=== PATIENT | male | born 1950 | race Caucasian/White ===

== ENCOUNTER 2016-04-27 10:55 | Inpatient (IN) | payer OTHER, MEDICARE ==
[2016-04-27 11:15] VITALS: BMI 31.9
[2016-04-27] MEDS ORDERED: SODIUM CHLORIDE 500 ML IV STA (11:49)
--- NOTE | 2016-04-27 11:57 | PDOC ---
[id number]: SOB (PCP SENT) Time Seen by Provider: 04/27/16 11:20 History Source: Patient Exam Limitations: No Limitations - History of Present Illness Initial Comments: 04/27/16 11:55 66y M hx of multiple CVAs, HTN, HL, DM, presents with sob. Pt states that he has been feeling very dyspneic this morning when he woke up so he called his PMD who sent him to the ED for evaluation. The pt states he has been having increasing EVANS for the past month such as when ambulating and at PT. Pt also endorses increasing orthopnea the past few days, but denies any leg swelling, calf pain. The pt endorses intermittent cough but not worsened than his baseline. The pt does endorse occasional chest tightness, (non recently). No history of dvt/pe. Pt is on plavix. pt attributes his evans in the past to his labatelol and has been titrating down his dose with out his PMDs knowledge. NO new weakness, vision changes, numbness/tingling. 04/27/16 12:11 Past History - Past Medical History Allergies/Adverse Reactions: Allergies Allergy/AdvReac Type Severity Reaction Status Date / Time No Known Allergies Allergy Verified 04/27/16 11:06 Home Medications: Ambulatory Orders Amlodipine Besylate [Norvasc -] 10 mg PO DAILY 10/06/14 Acetaminophen [Tylenol .Regular Strength -] 650 mg PO Q6H PRN #0 tablet Atorvastatin Ca [Lipitor] 10 mg PO HS tablet 10/14/14 Clopidogrel Bisulfate [Plavix -] 75 mg PO DAILY tablet 10/14/14 Levetiracetam [Keppra -] 500 mg PO BID tablet 10/14/14 Losartan 50Mg/Hctz 12.5MG [Hyzaar -] 2 tab PO DAILY tablet 10/14/14 Metformin HCl [Glucophage -] 1,000 mg PO BID@0700,1630 tablet 10/14/14 Sodium Chloride Nasal [place] [[place] Nasal [place] -] 2 spray NS BID PRN #0 spraybtl 10/14/14 Sitagliptin Phosphate [Januvia -] 50 mg PO AM 04/27/16 Triamcinolone Acetonide [Nasacort] 2 spray NS HS 04/27/16 CVA: Yes (2014 & 2015) Diabetes: Yes HTN: Yes - Psycho/Social/Smoking Cessation Hx Anxiety: No Suicidal Ideation: No Smoking History: Never smoked Have you smoked in the past 12 months: Yes Number of Cigarettes Smoked Daily: 0 Cigars Per Day: 1 Information on smoking cessation initiated: No 'Breaking Loose' booklet given: 10/06/14 Hx Alcohol Use: Yes Drug/Substance Use Hx: No Hx Substance Use Treatment: No Review of Systems - Review of Systems Able to Perform ROS?: Yes Comments:: 04/27/16 12:03 Constitutional - no reported Fever, Chills, weakness, HEENT: no reported vision changes, sore throat Respiratory: +sob, evans, no reported cough, hemoptysis Cardiac: +intermittent chest tightness, no reported palpitations, light headedness, leg swelling Abd/GI: no reported abd pain, nausea, vomiting, blood per rectum, melena, diarrhea : no reported dysuria, frequency, discharge Musculskelatal - no reported back pain, joint swelling skin - no reported bruising, erythema, rash neurological: no reported headache, numbness, focal weakness, tingling, ataxia, weakness hematologic: no reported anemia, easy bruising, easy bleeding *Physical Exam - Vital Signs Last Vital Signs Temp Pulse Resp BP Pulse Ox 98.2 F 117 H 20 128/86 98 04/27/16 11:07 04/27/16 11:07 04/27/16 11:07 04/27/16 11:07 04/27/16 11:07 - Physical Exam Comments: 04/27/16 12:12 GENERAL: The patient is awake, alert, and fully oriented, Nontoxic - in no acute distress. HEAD: Normocephalic, atraumatic. EYES: extraocular movements intact, sclera anicteric, conjunctiva clear. ENT: Normal voice, Moist mucous membranes. NECK: Normal range of motion, supple LUNGS: Breath sounds equal, clear to auscultation bilaterally. No wheezes, no rhonchi, no rales. HEART: tachycardic ABDOMEN: Soft, nontender, normoactive bowel sounds. No guarding, no rebound. No CVA tenderness EXTREMITIES: Normal range of motion, +1 pitting edema. No clubbing or cyanosis. No cords, erythema, or tenderness. NEUROLOGICAL: No facial assymetry, Normal speech, strength symmetric in upper and lowe extremities PSYCH: Normal mood, normal affect. SKIN: Warm, Dry, normal turgor, Heart Score/ECG Review - ECG Impressions Comment:: 04/27/16 12:12 Twelve-lead EKG was performed and reviewed by me. There is normal sinus rhythm with a rate of 112 QTc interval of 480 Abnormal R wave progression There are no ST or T wave abnormalities. ED Treatment Course - LABORATORY CBC & Chemistry Diagram: 04/30/16 05:00 04/30/16 05:00 - RADIOLOGY Radiology Studies Ordered: Category Date Time Status CHEST X-RAY PORTABLE* [RAD] Stat Radiology 04/27/16 11:49 Ordered Medical Decision Making - Medical Decision Making 04/27/16 12:14 66-year-old gentleman history of TIAs, hypertension, high cholesterol, diabetes presenting for evaluation of increasing dyspnea exertion and shortness of breath that worsened significantly this morning with some orthopnea without any infectious complaints. The patient's vitals are noted for tachycardia with a heart rate of 120 which appears sinus on EKG, patient is not hypoxic and is no acute distress however, doesn't appear dyspneic on minimal movement. His lungs are clear, mild +1 pitting edema in lower extremities. Differential for the patient's symptoms includes possible congestive heart failure, PE, pneumonia, renal insufficiency, metabolic rate the derangement, anemia. Will check labs, vbg, EKG, chest x-ray Will give the patient 5 mL of fluid to see if there is improvement of his heart rate 04/27/16 14:08 The patient's labs were reviewed The patient is noted to have a troponin of 1.31 and a BNP [id number] The patient denies any current chest pain but did state that he had some chest discomfort 3-4 days ago. We'll give the patient aspirin. Will discuss with cardiology, anticipate anticoagulation with heparin awiting call back from Dr. Luther The pt does not recall his cardiologits name. anticipate admission 04/27/16 14:[address] luther agree with admission will give pt some lasix awaiting call back from dr. montesinos (cardiology) for heparinziation due to + troponin/NSTEMI Stable for admission to telemetry Case discussed in detail with admitting physician including history, physical exam and ancillary studies. Admitting physician has assumed care for the patient, will follow all pending diagnostics and will complete the evaluation and treatment. 04/27/16 14:[address] montesinos agree with manageent would recommend lovenox as cr is fine will put consult in the computer CRITICAL CARE DOCUMENTATION: I spent ~35 minutes of Critical Care time, excluding separately billable procedures, involving high complexity decision making to assess, manipulate and support vital system function(s) to treat single or multiple vital organ system failure and/or to prevent further life threatening deterioration of the patient' s condition. Pt doing wll, resting comfortably in the stretcher conversing with his in no distress *DC/Admit/Observation/Transfer Diagnosis at time of Disposition: NSTEMI (non-ST elevated myocardial infarction) Congestive heart failure Qualifiers: Congestive heart failure type: combined Congestive heart failure chronicity: unspecified congestive heart failure chronicity Qualified Code(s): I50.40 - Unspecified combined systolic (congestive) and diastolic (congestive) heart failure - Discharge Dispostion Condition at time of disposition: Guarded Admit: Yes - Referrals
[2016-04-27 12:08] LABS: BASOPHIL 0.6 % (0-2.0); EOSINOPHIL 1.2 % (0-4.5); MCH 28.1 pg (25.7-33.7); MCHC 32.9 g/dl (32.0-35.9); MEAN CELL VOLUME 85.4 fl (80-96); NEUTROPHILS 77.8 % (42.8-82.8); PLATELET COUNT 261 K/MM3 (134-434); RDW 13.7 % (11.9-15.9); WHITE BLOOD COUNT 10.4 K/mm3 (4.0-10.0)
[2016-04-27 12:27] LABS: INR 1.05 (0.82-1.09); PROTHROMBIN TIME (PATIENT) 11.6 SEC (9.98-11.88)
[2016-04-27 12:38] LABS: VENOUS PH 7.41 (7.31-7.41)
[2016-04-27 12:39] LABS: VENOUS BLOOD GAS HCO3 21.8 meq/L (22-29)
--- NOTE | 2016-04-27 13:10 | EKG ---
Test Reason : Blood Pressure : / mmHG Vent. Rate : 112 BPM Atrial Rate : 112 BPM P-R Int : 152 ms QRS Dur : 090 ms QT Int : 352 ms P-R-T Axes : 062 -13 092 degrees QTc Int : 480 ms POOR DATA QUALITY, INTERPRETATION MAY BE ADVERSELY AFFECTED SINUS TACHYCARDIA SEPTAL INFARCT , AGE UNDETERMINED NONSPECIFIC ST ABNORMALITY ABNORMAL ECG WHEN COMPARED WITH ECG OF 06-OCT-2014 05:11, SIGNIFICANT CHANGES HAVE OCCURRED Confirmed by BONITA MEADE MD ([id number]) on 04/27/2016 1:10:30 PM Referred By: Confirmed By:BONITA MEADE MD
[2016-04-27 13:35] LABS: ALBUMIN 3.4 g/dl (3.4-5.0); ANION GAP 12 (8-16); BILIRUBIN,TOTAL 0.6 mg/dL (0.2-1.0); CO2 21 mmol/L (21-32); CREATININE 1.1 mg/dL (0.7-1.3); GLUCOSE,RANDOM 188 mg/dL (74-106); SGPT/ALT 20 U/L (12-78); TOT PROT 6.5 g/dl (6.4-8.2)
[2016-04-27 13:49] LABS: ALK PHOS 64 U/L (45-117)
[2016-04-27 13:54] LABS: SGOT/AST 26 U/L (15-37); TROPONIN I 1.31 ng/ml (0.00-0.05)
[2016-04-27] MEDS ORDERED: ASPIRIN 81 MG CHEWABLE TABLETS PO ONE (14:08)
[2016-04-27] MEDS ORDERED: HEPARIN NA (PORCINE) 5,000 UNITS/ML 1ML VIAL IVPUSH ONE (14:19)
[2016-04-27] MEDS ORDERED: FUROSEMIDE 40 MG/4 ML INJECTABLE VIAL IVPUSH ONE (14:19)
[2016-04-27] MEDS ORDERED: HEPARIN INFUSION - 500 ML IVPB SCH (14:30)
[2016-04-27] MEDS ORDERED: ENOXAPARIN NA (PORCINE) 100 MG/1 ML DISP.SYRIN SQ ONE ×2 (14:32→14:58)
[2016-04-27] MEDS ORDERED: FUROSEMIDE 40 MG/4 ML INJECTABLE VIAL ONE (14:58)
[2016-04-27] MEDS ORDERED: ASPIRIN 81 MG CHEWABLE TABLETS ONE (14:58)
--- NOTE | 2016-04-27 15:16 | HP ---
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 Cardiovascular: Yes: HTN, Hyperlipdemia Endocrine: Yes: Diabetes Mellitus - Smoking History Smoking history: Never smoked Have you smoked in the past 12 months: Yes Aproximately how many cigarettes per day: 0 - Alcohol/Substance Use Hx Alcohol Use: Yes Number of Drinks Daily: 4 Home Medications - Allergies Allergies/Adverse Reactions: Allergies Allergy/AdvReac Type Severity Reaction Status Date / Time No Known Allergies Allergy Verified 04/27/16 11:06 - Home Medications Home Medications: Ambulatory Orders Amlodipine Besylate [Norvasc -] 10 mg PO DAILY 10/06/14 Acetaminophen [Tylenol .Regular Strength -] 650 mg PO Q6H PRN #0 tablet Atorvastatin Ca [Lipitor] 10 mg PO HS tablet 10/14/14 Clopidogrel Bisulfate [Plavix -] 75 mg PO DAILY tablet 10/14/14 Insulin (Levemir) [Levemir Flexpen -] 18 units SQ BIDAC pen 10/14/14 Levetiracetam [Keppra -] 500 mg PO BID tablet 10/14/14 Losartan 50Mg/Hctz 12.5MG [Hyzaar -] 2 tab PO DAILY tablet 10/14/14 Magnesium Oxide [Mag-Ox -] 400 mg PO BID tablet 10/14/14 Metformin HCl [Glucophage -] 1,000 mg PO BID@0700,1630 tablet 10/14/14 Metoprolol Succinate [Toprol XL -] 12.5 mg PO DAILY tab.sr.24h 10/14/14 Sitagliptin Phosphate [Januvia -] 50 mg PO BID@0700,1630 tablet 10/14/14 Sodium Chloride Nasal [place] [[place] Nasal [place] -] 2 spray NS BID PRN #0 spraybtl 10/14/14 Tamsulosin HCl [Flomax -] 0.4 mg PO DAILY@0830 cap.er.24h 10/14/14 Review of Systems - Review of Systems Constitutional: reports: Weakness Eyes: reports: No Symptoms HENT: reports: No Symptoms Neck: reports: No Symptoms Cardiovascular: reports: Chest Pain, Shortness of Breath Respiratory: reports: SOB, SOB on Exertion Gastrointestinal: reports: No Symptoms Genitourinary: reports: No Symptoms Musculoskeletal: reports: Muscle Weakness Integumentary: reports: No Symptoms Neurological: reports: Pre-Existing Deficit, Weakness Endocrine: reports: No Symptoms Hematology/Lymphatic: reports: No Symptoms Psychiatric: reports: No Symptoms Physical Examination Vital Signs: Vital Signs Temperature 98.1 F 04/27/16 15:09 Pulse Rate 103 H 04/27/16 15:09 Respiratory Rate 20 04/27/16 15:09 Blood Pressure 135/77 04/27/16 15:09 O2 Sat by Pulse Oximetry (%) 96 04/27/16 15:09 Constitutional: Yes: Mild Distress Eyes: Yes: WNL HENT: Yes: WNL Neck: Yes: WNL Cardiovascular: Yes: WNL Respiratory: Yes: Rales, SOB Gastrointestinal: Yes: WNL Musculoskeletal: Yes: Muscle Weakness Extremities: Yes: WNL Edema: Yes Peripheral Pulses WNL: Yes Integumentary: Yes: WNL Wound/Incision: Yes: Clean/Dry Neurological: Yes: Pre-Existing Deficit, Unsteady Gait ...Motor Strength: LLE, RLE Psychiatric: Yes: Other Imaging - Results Chest X-ray: Report Reviewed Problem List - Problems (1) Congestive heart failure Code(s): I50.9 - HEART FAILURE, UNSPECIFIED Qualifiers: Congestive heart failure type: combined Congestive heart failure chronicity: unspecified congestive heart failure chronicity Qualified Code(s ): I50.40 - Unspecified combined systolic (congestive) and diastolic (congestive ) heart failure (2) NSTEMI (non-ST elevated myocardial infarction) Code(s): I21.4 - NON-ST ELEVATION (NSTEMI) MYOCARDIAL INFARCTION (3) CVA (cerebral vascular accident) Code(s): I63.9 - CEREBRAL INFARCTION, UNSPECIFIED (4) Seizure Code(s): R56.9 - UNSPECIFIED CONVULSIONS Assessment/Plan ACUTE CHF TYPE NOT DETERMINED YET CHECK ECHO NUCLEAR STRESS DAILY WEIGHT LASIX IV 02 SUPPORT CARDIOLOGY EVAL TROPONIN ELEVATED HEPARIN IV MAY BE RISKY WITH HISTORY OF CVA DVT PROPHYLAXIS
[2016-04-27] MEDS ORDERED: ACETAMINOPHEN 325 MG TABLET (FP) PO PRN (15:21)
[2016-04-27] MEDS ORDERED: LOSARTAN 50MG/HCTZ 12.5MG 1 TAB (FP) PO SCH ×2 (15:30→18:00)
[2016-04-27] MEDS: INSULIN SLIDING SCALE (NOVOLOG) 1 VIAL SQ SCH ×2 (16:30→21:33)
[2016-04-27 17:32] LABS: TROPONIN I 1.33 ng/ml (0.00-0.05)
[2016-04-27] MEDS ORDERED: levETIRAcetam 500 MG TABLET (FP) PO SCH (22:00)
[2016-04-27] MEDS ORDERED: ATORVASTATIN CA 20 MG TABLET (FP) PO SCH (22:00)
[2016-04-27] MEDS ORDERED: METOPROLOL SUCCINATE 50 MG TAB.SR.24H (FP) ONE (23:14)
[2016-04-27] MEDS ORDERED: METOPROLOL SUCCINATE 50 MG TAB.SR.24H (FP) PO ONE (23:45)
[2016-04-28 00:02] LABS: CALCIUM 8.9 mg/dL (8.5-10.1); CREATININE 1.2 mg/dL (0.7-1.3)
[2016-04-28 00:04] LABS: MAGNESIUM 1.7 mg/dL (1.8-2.4)
[2016-04-28] MEDS ORDERED: LORAZEPAM CARPU-JECT 2 MG/ML DISP.SYRIN ONE (00:13)
[2016-04-28] MEDS ORDERED: METOPROLOL TARTRATE 5 MG/5 ML VIAL ONE (00:16)
--- NOTE | 2016-04-28 00:20 | PN ---
Progress Note (short form) - Note Progress Note: Called to intubate this 66 year old male who was admitted for AR and went into cardiac arrest. Prior to arrival, pt. was cardioverted and given magnesium sulfate for torsades. Pt. with agonal breathing, and so was intubated under direct laryngoscopy using #8.0 endotracheal tube. +ETCO2 noted, breath sounds equal bilaterally. Tube secured. Pt. to be transferred to ICU for further management.
[2016-04-28 00:25] LABS: TROPONIN I 1.2 ng/ml (0.00-0.05)
--- NOTE | 2016-04-28 00:44 | HOSP ---
Subjective - Review of Symptoms Events since last encounter: at 11: 54 rapid response was called by RN, patient was unresponsive, no spontaneous breathing, no pulse. Code 99 was called CPR started as per ACLS protocol, patient ventilated with ambubag. patient noticed to be in torasdes, 2gm mag given. patient was shocked patient revived, patient in afib and then went into sinus tech patient intubated by anesthesiologist, patient shifted to ICU WI -111 spo 99 on ventilator BP - 130/83 Patient cathetrized NG tube inserted patient sedated Plan cbc, cmp, lactic acid, cradiac profile, abg , cxr , monitor vitals monitor intake/ output family informed regarding condition of patient. Physical Examination Vital Signs: Vital Signs Temperature 97.8 F 04/27/16 19:35 Pulse Rate 102 H 04/28/16 00:32 Respiratory Rate 14 04/28/16 00:32 Blood Pressure 131/79 04/27/16 19:35 O2 Sat by Pulse Oximetry (%) 100 04/28/16 00:32 Labs: CBC, BMP 04/27/16 23:15 Visit type - Emergency Visit Emergency Visit: Yes ED Registration Date: 04/27/16 Care time: The patient presented to the Emergency Department on the above date and was hospitalized for further evaluation of their emergent condition. - New Patient This patient is new to me today: Yes Date on this admission: 04/28/16 - Critical Care Critical Care patient: Yes Total Critical Care Time (in minutes): 60 Critical Care Statement: The care of this patient involved high complexity decision making to prevent further life threatening deterioration of the patient 's condition and/or to evalute & treat vital organ system(s) failure or risk of failure.
--- NOTE | 2016-04-28 00:58 | CONSULT ---
Consult - text type - Consultation Consultation Note: PULM/CCM PT seen and examined in ICU CC: Post cardiac arrest HPI: Briefly Mr Hernandez is a 66 yo hx of multiple CVAs, HTN, HL, DM, presented to ED today with sob, worsening orthopnea. NOted on xray to have pulm edema. + troponin. Was admitted to tele floor for diuresis and serial troponin. Received lasix. Code 99 called at 1156 when pt was noted to be agonal breathing and without a pulse, pt was in torsades, D/c cardioversion at 2358, 2 Gm mag given 2359, ROSC 0002. Pt intubated by anesthesia and brought to ICU. In ICU pt was tachycardic 130, normotensive 130/70, and over breathing vent at rate 28. On exam pt was not awake, had no withdrawal to noxious stimuli. Pupils were reactive at 4mm. Therapeutic hypothermia was initiated. 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 Independent ADL. Social History Smoking history Never smoked Have you smoked in the past 12 Yes months Hx Alcohol Use Yes Number of Drinks Daily 4 Home Medications Medication Instructions Recorded Amlodipine Besylate [Norvasc -] 10 mg PO DAILY 10/06/14 Acetaminophen [Tylenol .Regular 650 mg PO Q6H PRN #0 tablet 10/14/14 Strength -] Atorvastatin Ca [Lipitor] 10 mg PO HS tablet 10/14/14 Clopidogrel Bisulfate [Plavix -] 75 mg PO DAILY tablet 10/14/14 Levetiracetam [Keppra -] 500 mg PO BID tablet 10/14/14 Losartan 50Mg/Hctz 12.5MG [Hyzaar 2 tab PO DAILY tablet 10/14/14 -] Metformin HCl [Glucophage -] 1,000 mg PO BID@0700,1630 tablet 10/14/14 Sodium Chloride Nasal [place] [[place] 2 spray NS BID PRN #0 spraybtl 10/14/14 [place] Nasal [place] -] Sitagliptin Phosphate [Januvia -] 50 mg PO AM 04/27/16 Triamcinolone Acetonide [Nasacort] 2 spray NS HS 04/27/16 Vital Signs Temp 97.8 F 04/27/16 19:35 Pulse 102 H 04/28/16 00:32 Resp 14 04/28/16 00:32 BP 131/79 04/27/16 19:35 Pulse Ox 100 04/28/16 00:32 Intake & Output 04/27/16 04/27/16 04/28/16 11:59 23:59 11:59 Intake Total 500 Balance 500 Weight 95.254 kg 92.079 kg Intake: IV 500 Other: Voiding Method Toilet Height 5 ft 8 in 5 ft 8 in Body Mass Index (BMI) 31.9 31.9 Weight Measurement Method Standing Scale Weight Measurement Method Est/Stated by Patient Current Medications Acetaminophen (Tylenol -) 650 mg PO Q6H PRN PRN Reason: FEVER OR PAIN Atorvastatin Calcium (Lipitor -) 20 mg PO HS [facility] Last Admin: 04/27/16 21:33 Dose: 20 mg Clopidogrel Bisulfate (Plavix -) 75 mg PO DAILY [facility] Enoxaparin Sodium (Lovenox -) 90 mg SQ Q12H [facility] Heparin Sodium/Dextrose (Heparin Infusion -) 500 mls @ 20 mls/hr IVPB TITR [facility]IL ; 1,000 UNITS/HR PRN Reason: Protocol Last Admin: 04/27/16 17:50 Dose: Not Given Insulin Aspart (Novolog Vial Sliding Scale -) 1 vial SQ ACHS [facility] PRN Reason: Protocol Last Admin: 04/27/16 21:33 Dose: 2 units Levetiracetam (Keppra -) 500 mg PO BID [facility] Last Admin: 04/27/16 21:34 Dose: 500 mg Review of TELE: Intermittent PVCs and short runs of VT. THen [place]. EKG: ST at 108, LAD, non specific ST changes, normal intervals CXR: ETT in good position approx 2-3 cm above eileen, bilteral pulm edema, small effusion PE: Gen- well nourished man, intubated HEENT: PERRL sluggish at 4mm, ETT secured, no LAD, no jvp PULM: coarse crackles bilaterally CV: RRR, no m/r/g appreciated ABD: soft, no masses EXT: trace edema NEURO: not awake, does not respond to voice or noxious simuli, +cough, + gag, dolls intact A/ 66 yo man with hx CVA, HL admitted with pulm edema, NSTEMI c/b cardiac arrest ( 6min to ROSC) likely due to hypomagnesium now undergoing therapeutic hypothermia P/ -mechanical ventilation for normal pH -therapeutic hypothermia protocol (33-36 for 24hrs and the slow rewarming) -propofol for sedation, fent pushes -anti shivering therapies (buspar, demerol, magnesium) -cont ASA, plavix -heparin gtt -diuresis -cards following appreciate recs -serial trop, T-BNP -keep K 4, Mag > 2 -consider neuro consult -GI prophylaxis Sb Bowen ACNP [id number] 35min CCT
[2016-04-28 01:05] LABS: ARTERIAL BLD GAS O2 SATURATION 94.3 % (90-98.9); ARTERIAL BLOOD GAS BASE EXCESS -2.4 meq/l (-2-2); ARTERIAL BLOOD GAS HCO3 21.9 meq/L (22-26); ARTERIAL BLOOD GAS pH 7.38 (7.35-7.45)
[2016-04-28 01:06] LABS: ART PUNCT SITE RIGHT BRACHIAL; LPM/O2% 100; PT. ON O2? YES; TYPE OF O2 VENT
[2016-04-28 01:07] LABS: MECH. VENT. YES; VENT RATE 12; VT/PRESS 500
[2016-04-28 01:11] LABS: INR 1.09 (0.82-1.09); MCH 28.2 pg (25.7-33.7); MEAN CELL VOLUME 85.3 fl (80-96); MEAN PLT VOLUME 10.9 fl (7.5-11.1); PLATELET COUNT 306 K/MM3 (134-434); RDW 13.7 % (11.9-15.9)
[2016-04-28 01:14] LABS: ACTIVATED PTT 30.9 SECONDS (26.9-34.4)
[2016-04-28 01:23] LABS: ALBUMIN 3.5 g/dl (3.4-5.0); BILIRUBIN,DIRECT 0.1 mg/dL (0.0-0.2); BILIRUBIN,TOTAL 0.5 mg/dL (0.2-1.0); CALCIUM 8.8 mg/dL (8.5-10.1); CREATININE 1.4 mg/dL (0.7-1.3); MAGNESIUM 2.4 mg/dL (1.8-2.4); PHOSPHOROUS 5.8 mg/dL (2.5-4.9); TOT PROT 6.1 g/dl (6.4-8.2)
[2016-04-28] MEDS ORDERED: MEPERIDINE HCL CARPU-JECT 50 MG/1 ML DISP.SYRIN IVPUSH PRN (01:28)
[2016-04-28] MEDS: PROPOFOL 100 ML IVPB SCH (01:30)
[2016-04-28 01:42] LABS: TROPONIN I 1.27 ng/ml (0.00-0.05)
[2016-04-28] MEDS ORDERED: HEPARIN NA (PORCINE) 5,000 UNITS/ML 1ML VIAL IVPUSH PRN ×2 (01:44)
[2016-04-28] MEDS ORDERED: FUROSEMIDE 40 MG/4 ML INJECTABLE VIAL IVPUSH ONE (01:52)
[2016-04-28] MEDS ORDERED: FUROSEMIDE 40 MG/4 ML INJECTABLE VIAL ONE (01:55)
[2016-04-28] MEDS: HEPARIN INFUSION - 500 ML IVPB SCH ×2 (02:00→20:55)
[2016-04-28] MEDS: busPIRone HCL 5 MG TABLET NGT SCH ×3 (02:00→17:13)
[2016-04-28] MEDS ORDERED: ENOXAPARIN NA (PORCINE) 100 MG/1 ML DISP.SYRIN SQ SCH ×2 (03:00)
[2016-04-28] MEDS: MAGNESIUM SULF 50% (8.12 MEQ/2 ML-1 GM VIAL) IVPB ONE ×2 (03:27→03:30)
[2016-04-28] MEDS ORDERED: KCL 10 MEQ IVPB 100 ML IVPB SCH (03:30)
[2016-04-28] MEDS ORDERED: PROPOFOL 100 ML ONE ×2 (06:44→15:14)
[2016-04-28] MEDS: INSULIN SLIDING SCALE (NOVOLOG) 1 VIAL SQ SCH ×4 (07:02→22:27)
[2016-04-28 08:13] LABS: CREATININE 1.3 mg/dL (0.7-1.3)
[2016-04-28 08:14] LABS: CALCIUM 8.7 mg/dL (8.5-10.1)
[2016-04-28 08:15] LABS: TROPONIN I 1.5 ng/ml (0.00-0.05)
--- NOTE | 2016-04-28 09:58 | PN ---
Progress Note, Physician Chief Complaint: EVENTS REVIEWED INTUBATED VTACH/CODE99 CALLED BEDSIDE - Current Medication List Current Medications: Active Medications Acetaminophen (Tylenol -) 650 mg PO Q6H PRN PRN Reason: FEVER OR PAIN Atorvastatin Calcium (Lipitor -) 20 mg PO HS [facility] Buspirone HCl (Buspar -) 5 mg NGT TID [facility] Stop: 04/28/16 14:01 Last Admin: 04/28/16 06:45 Dose: 5 mg Fentanyl (Sublimaze Injection -) 50 mcg IVPUSH Q1H PRN PRN Reason: AGITATION Stop: 04/29/16 01:59 Last Admin: 04/28/16 06:35 Dose: 50 mcg Heparin Sodium (Porcine) (Heparin -) 1,000 unit IVPUSH PRN PRN PRN Reason: Heparin Heparin Sodium (Porcine) (Heparin -) 5,000 unit IVPUSH PRN PRN PRN Reason: Heparin Heparin Sodium/Dextrose (Heparin Infusion -) 500 mls @ 20 mls/hr IVPB TITR [facility]IL ; 1,000 UNITS/HR PRN Reason: Protocol Last Admin: 04/28/16 02:00 Dose: 20 mls/hr Propofol (Diprivan -) 100 mls @ 11.049 mls/hr IVPB TITR [facility]IL; 20 MCG/KG/MIN PRN Reason: Protocol Last Titration: 04/28/16 04:00 Dose: 25 mcg/kg/min Insulin Aspart (Novolog Vial Sliding Scale -) 1 vial SQ ACHS [facility] PRN Reason: Protocol Last Admin: 04/28/16 07:02 Dose: 4 units Levetiracetam (Keppra -) 500 mg PO BID [facility] Meperidine HCl (Demerol Injection -) 50 mg IVPUSH Q6H PRN PRN Reason: SHIVERING - Objective Vital Signs: Vital Signs Temperature 92.6 F L 04/28/16 09:30 Pulse Rate 66 04/28/16 09:30 Respiratory Rate 14 04/28/16 09:30 Blood Pressure 96/66 04/28/16 09:30 O2 Sat by Pulse Oximetry (%) 100 04/28/16 09:00 Constitutional: Yes: Severe Distress Eyes: Yes: WNL HENT: Yes: WNL Neck: Yes: WNL Cardiovascular: Yes: Pulse Irregular Respiratory: Yes: Mechanically Ventilated Gastrointestinal: Yes: Other Genitourinary: Yes: [place] Present Musculoskeletal: Yes: Muscle Weakness Extremities: Yes: Other Edema: Yes Edema: LLE: Trace, RLE: Trace Peripheral Pulses WNL: Yes Integumentary: Yes: WNL Wound/Incision: Yes: Clean/Dry Neurological: Yes: Other (SEDATED) Labs: CBC, BMP 04/28/16 01:00 04/28/16 05:20 INR, PTT INR 1.09 (0.82-1.09) 04/28/16 01:00 Problem List - Problems (1) Congestive heart failure Code(s): I50.9 - HEART FAILURE, UNSPECIFIED Qualifiers: Congestive heart failure type: combined Congestive heart failure chronicity: unspecified congestive heart failure chronicity Qualified Code(s ): I50.40 - Unspecified combined systolic (congestive) and diastolic (congestive ) heart failure (2) NSTEMI (non-ST elevated myocardial infarction) Code(s): I21.4 - NON-ST ELEVATION (NSTEMI) MYOCARDIAL INFARCTION (3) CVA (cerebral vascular accident) Code(s): I63.9 - CEREBRAL INFARCTION, UNSPECIFIED (4) Seizure Code(s): R56.9 - UNSPECIFIED CONVULSIONS (5) Cardiac arrest due to underlying cardiac condition Code(s): I46.2 - CARDIAC ARREST DUE TO UNDERLYING CARDIAC CONDITION Assessment/Plan INTUBATED ICU CARE CARDIOLOGY EVAL PULMONARY CONSULT HEPARIN/LOVENOX FOR AC NEUROLOGY EVAL
[2016-04-28] MEDS ORDERED: FUROSEMIDE 40 MG/4 ML INJECTABLE VIAL IVPUSH SCH (10:00)
[2016-04-28] MEDS ORDERED: CLOPIDOGREL BISULFATE 75 MG TABLET (FP) PO SCH ×2 (10:00)
--- NOTE | 2016-04-28 10:37 | CONSULT ---
Consult Consult Specialty:: Cardiology Referred by:: Dr Rosenthal Reason for Consultation:: CHF, VT - History of Present Illness Chief Complaint: LIMON, CP History of Present Illness: 66 yo wit no sign tobacco hx, HTN, HLD, DM, CVAs (pontine ) -. in 09/28 and 11/30 , here with fatigue since 11/30, LIMON over the last 3 weeks and orthopnea the last 3 days. Patient had a normal echo at the time of his CVA in 09/28. He didn't see cardiology afterwards. Recently, he did , in Dr Rosenthal's office -. DANAE recommended, but not done yet. Patient complained of CP 3 days prior to coming in -. didn't want to come to hospital, but took ASA an dwent to sleep. Son also noted him rubbing his chest a couple of times I the ER yesterday, pt was in ST , in CHF and with trop 1.31 -. admitted to floor after receiving 40 mg IV lasix (reportedly 3 liters out -. not charted well in ER). On the floor, pt with lost of short NSVT -. given toprol XL 50 and stat mag sent. However, he coded -. rhythm was torsades -. code lasted about 6 minutes-. ICU, intubated -> In ICU pt was tachycardic 130, normotensive 130/70, and over breathing vent at rate 28. On exam pt was not awake, had no withdrawal to noxious stimuli. Pupils were reactive at 4mm. Therapeutic hypothermia was initiated. Mg came back at 1.7 -> repleted BP a bit low subsequently. 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 Home Medications - Allergies Allergies/Adverse Reactions: Allergies Allergy/AdvReac Type Severity Reaction Status Date / Time No Known Allergies Allergy Verified 04/27/16 11:06 - Home Medications Home Medications: Ambulatory Orders Amlodipine Besylate [Norvasc -] 10 mg PO DAILY 10/06/14 Acetaminophen [Tylenol .Regular Strength -] 650 mg PO Q6H PRN #0 tablet Atorvastatin Ca [Lipitor] 10 mg PO HS tablet 10/14/14 Clopidogrel Bisulfate [Plavix -] 75 mg PO DAILY tablet 10/14/14 Levetiracetam [Keppra -] 500 mg PO BID tablet 10/14/14 Losartan 50Mg/Hctz 12.5MG [Hyzaar -] 2 tab PO DAILY tablet 10/14/14 Metformin HCl [Glucophage -] 1,000 mg PO BID@0700,1630 tablet 10/14/14 Sodium Chloride Nasal [place] [[place] Nasal [place] -] 2 spray NS BID PRN #0 spraybtl 10/14/14 Sitagliptin Phosphate [Januvia -] 50 mg PO AM 04/27/16 Triamcinolone Acetonide [Nasacort] 2 spray NS HS 04/27/16 Family Disease History - Family Disease History Family History: Denies (premature CAD) Family Disease History: Heart Disease: Father (VT in his 70s) Review of Systems Unable to obtain ROS, reason: intubated Physical Exam Vital Signs: Vital Signs Temperature 92.6 F L 04/28/16 09:30 Pulse Rate 66 04/28/16 09:30 Respiratory Rate 14 04/28/16 09:30 Blood Pressure 96/66 04/28/16 09:30 O2 Sat by Pulse Oximetry (%) 100 04/28/16 09:00 Constitutional: Yes: No Distress Eyes: Yes: Conjunctiva Clear HENT: Yes: Other (ETT in place) Neck: Yes: Supple Cardiovascular: Yes: Regular Rate and Rhythm Respiratory: No: Rales (anteriorly), Rhonchi, Wheezes Gastrointestinal: Yes: Normal Bowel Sounds, Soft Extremities: Yes: Other (ccool) Edema: No Peripheral Pulses WNL: Yes Neurological: Yes: Other (sedated) Labs: CBC, BMP 04/28/16 01:00 04/28/16 05:20 Imaging - Results Chest X-ray: Report Reviewed, Image Reviewed EKG: Report Reviewed, Image Reviewed (ST, septal VT (no change)) Other: Other (Echo (09/28) -.nl LV size and function) Assessment/Plan 66 yo male, with the above history, here with LIMON and reported CP 3 days prior -. found with elevate trop i and CHF. It seemed that the VT was subacute and may have happened 3 days prior. Mild increase in trop to 1.5 today, likely from the cardiac arrest He subsequently went into torsades, in setting of mildly reduced Mg. HD ok, though BP on low side. Hypothermic protocol Rec: Keep lytes wnl Cont heparin, ASA, lipitor DM control When BP able to tolerate, resume ARB, and start low dose BB Lasix prn Echo in AM Further management depending on course -. ideally should include cardiac cath Vent management per pulm Thanks! We'll follow D/w at bedside
[2016-04-28] MEDS: levETIRAcetam 500 MG TABLET (FP) PO SCH ×2 (11:05→22:30)
[2016-04-28] MEDS: FENTANYL INJECTION 500 MCG in DEXTROSE 5%-WATER - 90 ML IJ SCH ×2 (12:37→20:14)
[2016-04-28] MEDS ORDERED: MAGNESIUM SULF 50% (8.12 MEQ/2 ML-1 GM VIAL) ONE (20:30)
[2016-04-28] MEDS ORDERED: AMIODARONE HCL 150 MG/3 ML VIAL ONE (20:30)
--- NOTE | 2016-04-28 21:21 | PN ---
Progress Note (short form) - Note Progress Note: 2029 -- Called to bedside for wide complex tachycardia to 180. GEN: s/p cardiac arrest, therapeutic hypothermia. Propofol, Fentanyl and Heparin drips Pulm: Intubated, 100% o2 sat 500/12/10/70%, lungs clear to auscultation anteriorly Cardiac: wide complex tachy, radial pulse appreciated, irregular Renal: [place] with dark yellow output Ex: +2 bilateral pedal pulses, no edema Ab: +bs x4, distended Pt shocked 120, 150 and 200J, converted to sinus 80s-90s. BP 128/80. Stat EKG, labs ordered. Pt with very difficult IV access, consent obtained for central line. Pt pending slow rewarm at 0200. Case discussed with Dr. Verduzco, will start Amio drip.
[2016-04-28 21:36] LABS: MEAN PLT VOLUME 10.3 fl (7.5-11.1); PLATELET COUNT 303 K/MM3 (134-434); RDW 13.6 % (11.9-15.9); WHITE BLOOD COUNT 14.9 K/mm3 (4.0-10.0)
[2016-04-28 21:50] LABS: INR 1.08 (0.82-1.09); PROTHROMBIN TIME (PATIENT) 11.9 SEC (9.98-11.88)
[2016-04-28 21:52] LABS: ACTIVATED PTT 37.7 SECONDS (26.9-34.4)
[2016-04-28 22:14] LABS: ALBUMIN 3.6 g/dl (3.4-5.0); BILIRUBIN,TOTAL 0.5 mg/dL (0.2-1.0); CALCIUM 9.3 mg/dL (8.5-10.1); CREATININE 1.4 mg/dL (0.7-1.3); PHOSPHOROUS 6.7 mg/dL (2.5-4.9); TOT PROT 6.3 g/dl (6.4-8.2)
[2016-04-28 22:18] LABS: MAGNESIUM 2.6 mg/dL (1.8-2.4)
[2016-04-28] MEDS: ATORVASTATIN CA 20 MG TABLET (FP) PO SCH (22:30)
[2016-04-28] MEDS ORDERED: AMIODARONE HCL 150 MG/3 ML VIAL IVPUSH ONE (22:51)
[2016-04-28] MEDS: AMIODARONE HCL INJECTION 450 MG in DEXTROSE 5%-WATER - 241 ML IVPB SCH (23:23)
[2016-04-28] MEDS ORDERED: VECURONIUM BROMIDE 10 MG VIAL ONE (23:26)
--- NOTE | 2016-04-29 00:23 | PROC ---
Central Line Insertion Indication: Poor Venous Access Risks and Benefits Explained: Yes (To Alexia) Consent on Chart: Yes Central Line: Triple Lumen Catheter Anesthesia: 1% Lidocaine Sterile Technique: Yes Ultrasound Guided Assistance: Yes Position: Right Internal Jugular Post Insertion: Yes: Bilateral Breath Sounds, Bilateral Chest Expansion, Chest X-Ray Ordered Sterile Dressing Applied: Yes
[2016-04-29] MEDS: HEPARIN INFUSION - 500 ML IVPB SCH ×3 (00:47→19:16)
[2016-04-29] MEDS: PROPOFOL 100 ML IVPB SCH ×5 (01:20→23:20)
--- NOTE | 2016-04-29 01:25 | CONSULT ---
Consult Consult Specialty:: Neurology - History of Present Illness History of Present Illness: 66 yo admitted with cardiac problems with progressive dyspnea. Hx of CVA. During the night developed cardiac arrythymia and arrested. Currently on cooling protocol with paralytic sedation. 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 Home Medications - Allergies Allergies/Adverse Reactions: Allergies Allergy/AdvReac Type Severity Reaction Status Date / Time No Known Allergies Allergy Verified 04/27/16 11:06 - Home Medications Home Medications: Ambulatory Orders Amlodipine Besylate [Norvasc -] 10 mg PO DAILY 10/06/14 Acetaminophen [Tylenol .Regular Strength -] 650 mg PO Q6H PRN #0 tablet Atorvastatin Ca [Lipitor] 10 mg PO HS tablet 10/14/14 Clopidogrel Bisulfate [Plavix -] 75 mg PO DAILY tablet 10/14/14 Levetiracetam [Keppra -] 500 mg PO BID tablet 10/14/14 Losartan 50Mg/Hctz 12.5MG [Hyzaar -] 2 tab PO DAILY tablet 10/14/14 Metformin HCl [Glucophage -] 1,000 mg PO BID@0700,1630 tablet 10/14/14 Sodium Chloride Nasal [place] [[place] Nasal [place] -] 2 spray NS BID PRN #0 spraybtl 10/14/14 Sitagliptin Phosphate [Januvia -] 50 mg PO AM 04/27/16 Triamcinolone Acetonide [Nasacort] 2 spray NS HS 04/27/16 Family Disease History - Family Disease History Family Disease History: Heart Disease: Father (ME in his 70s) Physical Exam Vital Signs: Vital Signs Temperature 94.7 F L 04/28/16 22:00 Pulse Rate 88 04/29/16 00:00 Respiratory Rate 12 04/29/16 00:14 Blood Pressure 101/72 04/29/16 00:00 O2 Sat by Pulse Oximetry (%) 100 04/28/16 11:18 Constitutional: Yes: Well Nourished (sedated and paralyized on cooling protocol post arrest.) Neurological: Yes: Other (sedated and paralyized on cooling protocol post arrest.) Labs: CBC, BMP 04/28/16 21:00 04/28/16 21:00 Assessment/Plan Cardiac arrest with immediate ACLS and on cooling protocol Will follow for evaluation of potential hypoxia.
[2016-04-29] MEDS: VECURONIUM BROMIDE 50 MG in DEXTROSE 5%-WATER - 250 ML IVPB SCH ×2 (03:02→19:00)
[2016-04-29] MEDS: AMIODARONE HCL INJECTION 450 MG in DEXTROSE 5%-WATER - 241 ML IVPB SCH ×2 (05:25→22:00)
[2016-04-29] MEDS ORDERED: ACETAMINOPHEN 325 MG TABLET (FP) ONE (05:49)
[2016-04-29] MEDS ORDERED: ACETAMINOPHEN 1000 MG/100 ML VIAL (NON FORMULARY) IVPB ONE (05:50)
[2016-04-29] MEDS: FENTANYL INJECTION 500 MCG in DEXTROSE 5%-WATER - 90 ML IJ SCH ×4 (06:07→18:21)
[2016-04-29] MEDS: ACETAMINOPHEN 325 MG TABLET (FP) PO PRN ×2 (06:07→12:34)
[2016-04-29 06:12] LABS: BASOPHIL 0.1 % (0-2.0); EOSINOPHIL 0.1 % (0-4.5); MCH 27.7 pg (25.7-33.7); MCHC 32.4 g/dl (32.0-35.9); MEAN CELL VOLUME 85.5 fl (80-96); MEAN PLT VOLUME 10.4 fl (7.5-11.1); NEUTROPHILS 88.1 % (42.8-82.8); PLATELET COUNT 256 K/MM3 (134-434); RDW 13.7 % (11.9-15.9); WHITE BLOOD COUNT 19.8 K/mm3 (4.0-10.0)
[2016-04-29] MEDS: INSULIN SLIDING SCALE (NOVOLOG) 1 VIAL SQ SCH ×4 (06:30→22:15)
[2016-04-29 06:37] LABS: INR 1.12 (0.82-1.09); PROTHROMBIN TIME (PATIENT) 12.3 SEC (9.98-11.88)
[2016-04-29 06:40] LABS: ACTIVATED PTT 48.1 SECONDS (26.9-34.4)
[2016-04-29 06:42] LABS: ALBUMIN 3.4 g/dl (3.4-5.0); BILIRUBIN,TOTAL 0.5 mg/dL (0.2-1.0); CALCIUM 8.6 mg/dL (8.5-10.1); CREATININE 1.7 mg/dL (0.7-1.3); MAGNESIUM 2.1 mg/dL (1.8-2.4); PHOSPHOROUS 7.4 mg/dL (2.5-4.9); TOT PROT 6.2 g/dl (6.4-8.2)
[2016-04-29 07:41] LABS: ARTERIAL BLD GAS O2 SATURATION 96.5 % (90-98.9); ARTERIAL BLOOD GAS BASE EXCESS -2.9 meq/l (-2-2); ARTERIAL BLOOD GAS HCO3 22.9 meq/L (22-26)
[2016-04-29 07:42] LABS: ALLENS TEST POSITIVE; ART PUNCT SITE RIGHT RADIAL; LPM/O2% 65%; PT. ON O2? YES
[2016-04-29 07:43] LABS: MECH. VENT. ESPRIT; PT'S TEMP 100.6; TYPE OF O2 MEC.VENT; VENT RATE 12; VT/PRESS 500
--- NOTE | 2016-04-29 08:54 | PN ---
Progress Note, Physician - Current Medication List Current Medications: Active Medications Acetaminophen (Tylenol -) 650 mg PO Q6H PRN PRN Reason: FEVER OR PAIN Last Admin: 04/29/16 06:07 Dose: 650 mg Atorvastatin Calcium (Lipitor -) 20 mg PO HS MIKHAIL Last Admin: 04/28/16 22:30 Dose: 20 mg Heparin Sodium (Porcine) (Heparin -) 1,000 unit IVPUSH PRN PRN PRN Reason: Heparin Heparin Sodium (Porcine) (Heparin -) 5,000 unit IVPUSH PRN PRN PRN Reason: Heparin Last Admin: 04/29/16 00:47 Dose: 5,000 unit Heparin Sodium/Dextrose (Heparin Infusion -) 500 mls @ 20 mls/hr IVPB TITR MIKHAIL ; 1,000 UNITS/HR PRN Reason: Protocol Last Admin: 04/29/16 03:05 Dose: Not Given Propofol (Diprivan -) 100 mls @ 11.049 mls/hr IVPB TITR MIKHAIL; 20 MCG/KG/MIN PRN Reason: Protocol Last Admin: 04/29/16 06:20 Dose: 13.812 mls/hr Fentanyl 500 mcg/ Dextrose 100 mls @ 10 mls/hr IJ TITR MIKHAIL PRN Reason: 50 MCG/HR Last Admin: 04/29/16 07:21 Dose: 10 mls/hr Vecuronium [place] 50 mg/ (Dextrose) 250 mls @ 22.15 mls/hr IVPB TITR MIKHAIL; 0.8 MCG/KG/MIN PRN Reason: Protocol Last Admin: 04/29/16 03:02 Dose: Not Given Amiodarone HCl 450 mg/ (Dextrose) 250 mls @ 33.33 mls/hr IVPB TITR MIKHAIL; 1 MG/ MIN PRN Reason: Protocol Last Admin: 04/29/16 05:25 Dose: 16.66 mls/hr Insulin Aspart (Novolog Vial Sliding Scale -) 1 vial SQ ACHS MIKHAIL PRN Reason: Protocol Last Admin: 04/29/16 06:30 Dose: 2 units Levetiracetam (Keppra -) 500 mg PO BID MIKHAIL Last Admin: 04/28/16 22:30 Dose: 500 mg Meperidine HCl (Demerol Injection -) 50 mg IVPUSH Q6H PRN PRN Reason: SHIVERING Last Admin: 04/28/16 21:56 Dose: 50 mg - Objective Vital Signs: Vital Signs Temperature 100.2 F H 04/29/16 06:00 Pulse Rate 92 H 04/29/16 06:00 Respiratory Rate 16 04/29/16 06:10 Blood Pressure 112/69 04/29/16 06:00 O2 Sat by Pulse Oximetry (%) 98 04/29/16 02:00 HENT: Yes: Other (INTUBATED) Cardiovascular: Yes: Regular Rate and Rhythm, S1, S2 Respiratory: Yes: CTA Bilaterally Gastrointestinal: Yes: Normal Bowel Sounds, Soft Edema: No Labs: CBC, BMP 04/29/16 05:40 04/29/16 05:40 INR, PTT INR 1.12 (0.82-1.09) 04/29/16 05:40 Problem List - Problems (1) Cardiac arrest due to underlying cardiac condition Code(s): I46.2 - CARDIAC ARREST DUE TO UNDERLYING CARDIAC CONDITION (2) Congestive heart failure Code(s): I50.9 - HEART FAILURE, UNSPECIFIED Qualifiers: Congestive heart failure type: combined Congestive heart failure chronicity: unspecified congestive heart failure chronicity Qualified Code(s ): I50.40 - Unspecified combined systolic (congestive) and diastolic (congestive ) heart failure (3) NSTEMI (non-ST elevated myocardial infarction) Code(s): I21.4 - NON-ST ELEVATION (NSTEMI) MYOCARDIAL INFARCTION (4) CVA (cerebral vascular accident) Code(s): I63.9 - CEREBRAL INFARCTION, UNSPECIFIED (5) Seizure Code(s): R56.9 - UNSPECIFIED CONVULSIONS Assessment/Plan (1) Congestive heart failure Code(s): I50.9 - HEART FAILURE, UNSPECIFIED Qualifiers: Congestive heart failure type: combined Congestive heart failure chronicity: unspecified congestive heart failure chronicity Qualified Code(s ): I50.40 - Unspecified combined systolic (congestive) and diastolic (congestive ) heart failure (2) NSTEMI (non-ST elevated myocardial infarction) Code(s): I21.4 - NON-ST ELEVATION (NSTEMI) MYOCARDIAL INFARCTION (3) CVA (cerebral vascular accident) Code(s): I63.9 - CEREBRAL INFARCTION, UNSPECIFIED (4) Seizure Code(s): R56.9 - UNSPECIFIED CONVULSIONS (5) Cardiac arrest due to underlying cardiac condition Code(s): I46.2 - CARDIAC ARREST DUE TO UNDERLYING CARDIAC CONDITION Assessment/Plan INTUBATED ICU CARE CARDIOLOGY & PULMONARY ON CASE AC NEUROLOGY EVAL S/P CARDIAC ARREST FEVER -> ID CONSULT & F/U Cx SAMPLE CUTTER FM
--- NOTE | 2016-04-29 10:33 | PN ---
Progress Note, Physician History of Present Illness: Patient awakens to verbal stimuli and follows commands. Patient reportedly had runs of non-sustained VT last night, but could not find sustained runs per review of telemetry. Regardless, patient was shocked by CLINICAL INFORMATION SYSTEMS DIRECTOR last evening and started on amiodarone gtt. - Current Medication List Current Medications: Active Medications Acetaminophen (Tylenol -) 650 mg PO Q6H PRN PRN Reason: FEVER OR PAIN Last Admin: 04/29/16 06:07 Dose: 650 mg Atorvastatin Calcium (Lipitor -) 20 mg PO HS MIKHAIL Last Admin: 04/28/16 22:30 Dose: 20 mg Heparin Sodium (Porcine) (Heparin -) 1,000 unit IVPUSH PRN PRN PRN Reason: Heparin Heparin Sodium (Porcine) (Heparin -) 5,000 unit IVPUSH PRN PRN PRN Reason: Heparin Last Admin: 04/29/16 00:47 Dose: 5,000 unit Heparin Sodium/Dextrose (Heparin Infusion -) 500 mls @ 20 mls/hr IVPB TITR MIKHAIL ; 1,000 UNITS/HR PRN Reason: Protocol Last Admin: 04/29/16 03:05 Dose: Not Given Propofol (Diprivan -) 100 mls @ 11.049 mls/hr IVPB TITR MIKHAIL; 20 MCG/KG/MIN PRN Reason: Protocol Last Admin: 04/29/16 06:20 Dose: 13.812 mls/hr Fentanyl 500 mcg/ Dextrose 100 mls @ 10 mls/hr IJ TITR MIKHAIL PRN Reason: 50 MCG/HR Last Admin: 04/29/16 07:21 Dose: 10 mls/hr Vecuronium [place] 50 mg/ (Dextrose) 250 mls @ 22.15 mls/hr IVPB TITR MIKHAIL; 0.8 MCG/KG/MIN PRN Reason: Protocol Last Admin: 04/29/16 03:02 Dose: Not Given Amiodarone HCl 450 mg/ (Dextrose) 250 mls @ 33.33 mls/hr IVPB TITR MIKHAIL; 1 MG/ MIN PRN Reason: Protocol Last Admin: 04/29/16 05:25 Dose: 16.66 mls/hr Insulin Aspart (Novolog Vial Sliding Scale -) 1 vial SQ ACHS MIKHAIL PRN Reason: Protocol Last Admin: 04/29/16 06:30 Dose: 2 units Levetiracetam (Keppra -) 500 mg PO BID [facility] Last Admin: 04/28/16 22:30 Dose: 500 mg Meperidine HCl (Demerol Injection -) 50 mg IVPUSH Q6H PRN PRN Reason: SHIVERING Last Admin: 04/28/16 21:56 Dose: 50 mg - Objective Vital Signs: Vital Signs Temperature 100.2 F H 04/29/16 06:00 Pulse Rate 92 H 04/29/16 06:00 Respiratory Rate 14 04/29/16 09:46 Blood Pressure 112/69 04/29/16 06:00 O2 Sat by Pulse Oximetry (%) 98 04/29/16 02:00 Constitutional: Yes: No Distress HENT: Yes: Atraumatic, Normocephalic Cardiovascular: Yes: Regular Rate and Rhythm Respiratory: Yes: Intubated, Mechanically Ventilated Gastrointestinal: Yes: Normal Bowel Sounds, Soft. No: Tenderness Edema: No Neurological: Yes: Other (Follows verbal commands) Labs: CBC, BMP 04/29/16 05:40 04/29/16 05:40 INR, PTT INR 1.12 (0.82-1.09) 04/29/16 05:40 Assessment/Plan 66 yo with HTN, hyperlipidemia, DM, prior CVAs (pontine) 09/28 & 11/30. Admitted on 04/27 with LIMON x 3 weeks and orthopnea/CP over the last 3 days. Patient had a normal echo at the time of his CVA in 09/2014. In ED patient was noted to have congestion on CXR and initial trop 1.31. He was admitted to floor and given IV laxis. On floor, patient had numerous short runs of non-sustained VT. He was given metoprolol succinate 50 mg po x1 and stat Mg was sent. However, he had VT arrest (Torsades) on 04/28 and was intubated. Mg was repleted and hypothermia protocol was initiated. Patient developed non-sustained runs of VT last evening, but could not find any sustained VT per review of telemetry. Regardless, it appears that the patient was shocked by CLINICAL INFORMATION SYSTEMS DIRECTOR last evening and started on amiodarone gtt. Currently awake and follows commands, but remains intubated with low BP. Informed by nurse this AM, that patient will be transferred to [place] for further evaluation/treatment. Echocardiogram was performed today. Final report is pending. However, I reviewed the images myself and it appears that patient had an anterior infarct given akinesis/severe hypokinesis of anterior wall with estimated LVEF 25-30% per my review. RECS: Continue amiodarone gtt Will start metoprolol tartrate 25 mg po bid given VT arrest/CHF. Patient is currently pending transfer to [place] per nursing. Patient will need cardiac cath and likely coronary revascularization. May give pressors for BP support as needed. Would avoid dopamine or dobutamine at this time given recurrent VT. Monitor and replace lytes (K and Mg) as needed. Keep K >4 and Mg >2. Will follow. Call with questions.
[2016-04-29] MEDS ORDERED: NOREPINEPHRINE BITARTRATE 4 MG/4 ML ML IV ONE ×2 (10:50→21:31)
[2016-04-29] MEDS ORDERED: METOPROLOL SUCCINATE 25 MG TAB.SR.24H (FP) PO SCH ×2 (11:00)
[2016-04-29] MEDS: NOREPINEPHRINE BITARTRATE 8,000 MCG in DEXTROSE 5%-WATER - 492 ML IV SCH ×2 (11:03→23:30)
--- NOTE | 2016-04-29 12:03 | EKG ---
Test Reason : Blood Pressure : / mmHG Vent. Rate : 110 BPM Atrial Rate : 110 BPM P-R Int : 128 ms QRS Dur : 084 ms QT Int : 372 ms P-R-T Axes : 054 -06 084 degrees QTc Int : 503 ms POOR DATA QUALITY, INTERPRETATION MAY BE ADVERSELY AFFECTED BASELINE ARTIFACT SINUS TACHYCARDIA WITH OCCASIONAL and consecutive PREMATURE VENTRICULAR COMPLEXES POSSIBLE LEFT ATRIAL ENLARGEMENT LOW VOLTAGE QRS CANNOT RULE OUT ANTEROSEPTAL INFARCT (CITED ON OR BEFORE 27-APR-2016) ABNORMAL ECG WHEN COMPARED WITH ECG OF 28-APR-2016 01:26, POOR DATA QUALITY IN CURRENT ECG PRECLUDES SERIAL COMPARISON Confirmed by LAURA CHO MD ([id number]) on 04/29/2016 12:02:47 PM Referred By: Confirmed By:LAURA CHO MD
--- NOTE | 2016-04-29 12:19 | EKG ---
Test Reason : Blood Pressure : / mmHG Vent. Rate : 108 BPM Atrial Rate : 108 BPM P-R Int : 166 ms QRS Dur : 098 ms QT Int : 304 ms P-R-T Axes : 048 -30 105 degrees QTc Int : 407 ms SINUS TACHYCARDIA LEFT AXIS DEVIATION SEPTAL INFARCT (CITED ON OR BEFORE 27-APR-2016) ABNORMAL ECG WHEN COMPARED WITH ECG OF 27-APR-2016 11:54, NONSPECIFIC T WAVE ABNORMALITY, WORSE IN LATERAL LEADS Confirmed by LAURA CHO MD ([id number]) on 04/29/2016 12:19:08 PM Referred By: Confirmed By:LAURA CHO MD
[2016-04-29] MEDS: METOPROLOL TARTRATE 25 MG TABLET (FP) PO SCH ×2 (12:34→21:22)
[2016-04-29] MEDS: levETIRAcetam 500 MG TABLET (FP) PO SCH ×2 (12:34→22:28)
--- NOTE | 2016-04-29 13:24 | PN ---
Progress Note (short form) - Note Progress Note: ID Consult dictated Fever/ leukocytosis- possible sepsis/ septic shock S/P cardiopulmonary arrest Respiratory failure Possible aspiration pneumonia Azotemia Pending sepsis workup, empiric coverage with ceftriaxone/vancomycin Critical care time 35 min
--- NOTE | 2016-04-29 14:09 | PN ---
Teaching Attending Note Name of Resident: Antwon Lawler ATTENDING PHYSICIAN STATEMENT I saw and evaluated the patient. I reviewed the resident's note and discussed the case with the resident. I agree with the resident's findings and plan as documented. SUBJECTIVE: Pt seen and examined in the ICU. Remains intubated, sedated. Events overnight noted, now on amiodarone gtt s/p defibrillation. OBJECTIVE: Last Vital Signs Temp Pulse Resp BP Pulse Ox 100.2 F H 86 14 82/42 98 04/29/16 06:00 04/29/16 11:03 04/29/16 13:58 04/29/16 11:03 04/29/16 02:00 Intake & Output 04/26/16 04/27/16 04/28/16 04/29/16 23:59 23:59 23:59 23:59 Intake Total 620 1235 1045 Output Total 850 250 Balance 620 385 795 Weight 203 lb 203 lb 7.787 oz 207 lb 1.6 oz Gen: intubated, sedated Heart: RRR Lung: distant breath sounds Abd: soft, nontender Ext: trace edema CBC, BMP 04/29/16 05:40 04/29/16 05:40 Active Medications Acetaminophen (Tylenol Oral Solution -) 650 mg PO Q4H PRN PRN Reason: FEVER OR PAIN Atorvastatin Calcium (Lipitor -) 20 mg PO HS MIKHAIL Last Admin: 04/28/16 22:30 Dose: 20 mg Heparin Sodium (Porcine) (Heparin -) 1,000 unit IVPUSH PRN PRN PRN Reason: Heparin Last Admin: 04/29/16 10:34 Dose: 1,000 unit Heparin Sodium (Porcine) (Heparin -) 5,000 unit IVPUSH PRN PRN PRN Reason: Heparin Last Admin: 04/29/16 00:47 Dose: 5,000 unit Heparin Sodium/Dextrose (Heparin Infusion -) 500 mls @ 20 mls/hr IVPB TITR MIKHAIL ; 1,000 UNITS/HR PRN Reason: Protocol Last Titration: 04/29/16 10:34 Dose: 1,350 units/hr Propofol (Diprivan -) 100 mls @ 11.049 mls/hr IVPB TITR MIKHAIL; 20 MCG/KG/MIN PRN Reason: Protocol Last Admin: 04/29/16 06:20 Dose: 13.812 mls/hr Fentanyl 500 mcg/ Dextrose 100 mls @ 10 mls/hr IJ TITR MIKHAIL PRN Reason: 50 MCG/HR Last Admin: 04/29/16 13:55 Dose: Not Given Vecuronium [place] 50 mg/ (Dextrose) 250 mls @ 22.15 mls/hr IVPB TITR MIKHAIL; 0.8 MCG/KG/MIN PRN Reason: Protocol Last Admin: 04/29/16 03:02 Dose: Not Given Amiodarone HCl 450 mg/ (Dextrose) 250 mls @ 33.33 mls/hr IVPB TITR MIKHAIL; 1 MG/ MIN PRN Reason: Protocol Last Admin: 04/29/16 05:25 Dose: 16.66 mls/hr Norepinephrine Bitartrate 8, (000 mcg/ Dextrose) 500 mls @ 30 mls/hr IV ASDIR MIKHAIL; 8 MCG/MIN PRN Reason: Protocol Last Admin: 04/29/16 11:03 Dose: 30 mls/hr Ceftriaxone Sodium 2 gm/ (Dextrose) 100 mls @ 200 mls/hr IVPB DAILY MIKHAIL Vancomycin HCl 1,000 mg/ (Dextrose) 250 mls @ 200 mls/hr IVPB ONCE ONE Stop: 04/29/16 14:39 Insulin Aspart (Novolog Vial Sliding Scale -) 1 vial SQ ACHS MIKHAIL PRN Reason: Protocol Last Admin: 04/29/16 13:54 Dose: 4 units Levetiracetam (Keppra -) 500 mg PO BID [facility] Last Admin: 04/29/16 12:34 Dose: 500 mg Meperidine HCl (Demerol Injection -) 50 mg IVPUSH Q6H PRN PRN Reason: SHIVERING Last Admin: 04/28/16 21:56 Dose: 50 mg Metoprolol Tartrate (Lopressor -) 25 mg PO BID [facility] Last Admin: 04/29/16 12:34 Dose: 25 mg ASSESSMENT AND PLAN: s/p VT Cardiopulmonary Arrest s/p Hypothermia Protocol Acute NSTEMI Acute LV Systolic Failure Cardiogenic Shock Acute Kidney Injury - started on levophed gtt for hemodynamic support - f/u echocardiogram - trend lactate, cardiac enzymes - IVF to keep CVP 8-12 - continue amiodarone gtt - metoprolol per cardiology - continue anticoagulation - will need cardiac catheterization, spoke to envelope stamping machine operator at [facility] who accepted case - ICU monitoring
[2016-04-29] MEDS ORDERED: VANCOMYCIN 1 GRAM (PRE-DOCKED) 250 ML IVPB ONE (15:00)
[2016-04-29] MEDS: CEFTRIAXONE 100 ML IVPB SCH (15:17)
--- NOTE | 2016-04-29 18:25 | PN ---
Physical Exam: SUBJECTIVE: Patient seen and examined at bedside in ICU. Pt is sedated and intubated. No acute event noted overnight. OBJECTIVE: Vital Signs Period Temp Pulse Resp BP Sys/Thornton Pulse Ox Last 24 Hr 93.2 F-101 F 78-110 12- 76-128/42-83 98-98 GENERAL: The patient is sedated and intubated LUNGS: obscured lung sounds HEART: RRR without murmur, rub or gallop. ABDOMEN: Soft, nondistended, hypoactive bowel sounds, tympanic, G tube in LUQ, scars in RUQ and suprapubic areas. EXTREMITIES: +1 edema. Laboratory Results - last 24 hr 04/28/16 04/28/16 04/28/16 16:48 21:00 21:00 WBC 14.9 H D RBC 4.89 Hgb 13.7 Hct 41.6 MCV 85.0 MCHC 33.0 RDW 13.6 Plt Count 303 MPV 10.3 Neutrophils % Lymphocytes % Monocytes % Eosinophils % Basophils % INR PTT (Actin FS) Puncture Site Patient Temperature ABG pH ABG pCO2 at Pt Temp ABG pO2 at Pt Temp ABG HCO3 ABG O2 Sat (Measured) ABG O2 Content ABG Base Excess Jairo Test O2 Delivery Device Oxygen Flow Rate Vent Mode Vent Rate Mechanical Rate PEEP Pressure Support Vent Sodium 139 Potassium 4.7 Chloride 101 Carbon Dioxide 27 Anion Gap 11 BUN 21 H Creatinine 1.4 H Creat Clearance w eGFR 50.55 POC Glucometer [phone] Random Glucose 146 H D Lactic Acid Calcium 9.3 Phosphorus 6.7 H Magnesium 2.6 H Total Bilirubin 0.5 AST 37 D ALT 67 Alkaline Phosphatase 72 Total Protein 6.3 L Albumin 3.6 04/28/16 04/28/16 04/29/16 21:00 21:00 05:40 WBC RBC Hgb Hct MCV MCHC RDW Plt Count MPV Neutrophils % Lymphocytes % Monocytes % Eosinophils % Basophils % INR 1.08 PTT (Actin FS) 37.7 H D Puncture Site Patient Temperature ABG pH ABG pCO2 at Pt Temp ABG pO2 at Pt Temp ABG HCO3 ABG O2 Sat (Measured) ABG O2 Content ABG Base Excess [place] Test O2 Delivery Device Oxygen Flow Rate Vent Mode Vent Rate Mechanical Rate PEEP Pressure Support Vent Sodium 137 Potassium 4.3 Chloride 97 L Carbon Dioxide 25 Anion Gap 15 BUN 26 H D Creatinine 1.7 H D Creat Clearance w eGFR 40.40 POC Glucometer Random Glucose 230 H D Lactic Acid 3.386 H* Calcium 8.6 Phosphorus 7.4 H Magnesium 2.1 Total Bilirubin 0.5 AST 30 ALT 67 Alkaline Phosphatase 72 Total Protein 6.2 L Albumin 3.4 04/29/16 04/29/16 04/29/16 05:40 05:40 07:30 WBC 19.8 H D RBC 4.53 Hgb 12.6 Hct 38.7 MCV 85.5 MCHC 32.4 RDW 13.7 Plt Count 256 MPV 10.4 Neutrophils % 88.1 H Lymphocytes % 4.4 L D Monocytes % 7.3 Eosinophils % 0.1 D Basophils % 0.1 INR 1.12 PTT (Actin FS) 48.1 H Puncture Site Right radial Patient Temperature 100.6 ABG pH 7.30 L ABG pCO2 at Pt Temp 49.2 H D ABG pO2 at Pt Temp 102.0 H D ABG HCO3 22.9 ABG O2 Sat (Measured) 96.5 ABG O2 Content 16.7 ABG Base Excess -2.9 L Jairo Test Positive O2 Delivery Device Mec.vent Oxygen Flow Rate 65% Vent Mode A/c Vent Rate 12 Mechanical Rate Esprit PEEP 10.0 Pressure Support Vent 500 Sodium Potassium Chloride Carbon Dioxide Anion Gap BUN Creatinine Creat Clearance w eGFR POC Glucometer Random Glucose Lactic Acid Calcium Phosphorus Magnesium Total Bilirubin AST ALT Alkaline Phosphatase Total Protein Albumin 04/29/16 17:00 WBC RBC Hgb Hct MCV MCHC RDW Plt Count MPV Neutrophils % Lymphocytes % Monocytes % Eosinophils % Basophils % INR PTT (Actin FS) 82.4 H D Puncture Site Patient Temperature ABG pH ABG pCO2 at Pt Temp ABG pO2 at Pt Temp ABG HCO3 ABG O2 Sat (Measured) ABG O2 Content ABG Base Excess [place] Test O2 Delivery Device Oxygen Flow Rate Vent Mode Vent Rate Mechanical Rate PEEP Pressure Support Vent Sodium Potassium Chloride Carbon Dioxide Anion Gap BUN Creatinine Creat Clearance w eGFR POC Glucometer Random Glucose Lactic Acid Calcium Phosphorus Magnesium Total Bilirubin AST ALT Alkaline Phosphatase Total Protein Albumin Active Medications Generic Name Dose Route Start Last Admin Trade Name Freq PRN Reason Stop Dose Admin Acetaminophen 650 mg 04/29/16 12:29 Tylenol Oral Solution - PO Q4H PRN FEVER OR PAIN Atorvastatin Calcium 20 mg 04/28/16 22:00 04/28/16 22:30 Lipitor - PO 20 mg HS MIKHAIL Administration Heparin Sodium (Porcine) 1,000 unit 04/28/16 01:44 04/29/16 10:34 Heparin - IVPUSH 1,000 unit PRN PRN Administration Heparin Heparin Sodium (Porcine) 5,000 unit 04/28/16 01:44 04/29/16 00:47 Heparin - IVPUSH 5,000 unit PRN PRN Administration Heparin Heparin Sodium/Dextrose 500 mls @ 20 mls/hr 04/28/16 01:44 04/29/16 10:34 Heparin Infusion - IVPB 1,350 units/hr TITR MIKHAIL Titration Protocol 1,000 UNITS/HR Propofol 100 mls @ 11.049 mls/hr 04/28/16 01:30 04/29/16 06:20 Diprivan - IVPB 13.812 mls/hr TITR MIKHAIL Administration Protocol 20 MCG/KG/MIN Fentanyl 500 mcg/ Dextrose 100 mls @ 10 mls/hr 04/28/16 11:45 04/29/16 13:55 IJ Not Given TITR MIKHAIL 50 MCG/HR Vecuronium [place] 50 mg/ 250 mls @ 22.15 mls/hr 04/28/16 22:30 04/29/16 03:02 Dextrose IVPB Not Given TITR MIKHAIL Protocol 0.8 MCG/KG/MIN Amiodarone HCl 450 mg/ 250 mls @ 33.33 mls/hr 04/28/16 23:00 04/29/16 05:25 Dextrose IVPB 16.66 mls/hr TITR MIKHAIL Administration Protocol 1 MG/MIN Norepinephrine Bitartrate 8, 500 mls @ 30 mls/hr 04/29/16 11:00 04/29/16 16:00 000 mcg/ Dextrose IV 12 mcg/min ASDIR MIKHAIL Titration Protocol 8 MCG/MIN Ceftriaxone Sodium 100 mls @ 200 mls/hr 04/29/16 16:00 04/29/16 15:17 Rocephin 2gm Ivpb (Pre-Docked) IVPB 200 mls/hr DAILY MIKHAIL Administration Insulin Aspart 1 vial 04/28/16 07:00 04/29/16 13:54 Novolog Vial Sliding Scale - SQ 4 units ACHS MIKHAIL Administration Protocol Levetiracetam 500 mg 04/28/16 10:00 04/29/16 12:34 Keppra - PO 500 mg BID MIKHAIL Administration Meperidine HCl 50 mg 04/28/16 01:28 04/28/16 21:56 Demerol Injection - IVPUSH 50 mg Q6H PRN Administration SHIVERING Metoprolol Tartrate 25 mg 04/29/16 11:15 04/29/16 12:34 Lopressor - PO 25 mg BID MIKHAIL Administration ASSESSMENT/PLAN: 66 yo M admitted to ICU s/p cardiopulmonary Arrest. Cardiac arrest 2/2 NSTEMI - s/p hypothermia protocol - likely due to arrhythmia from acute LV systolic failure s/p ND - on levophed 8mcg gtt - on metoprolol 25mg BID - cont. hydration to maintain CVP 8-12 - cont. heparin NATA - cont. hydration Dispo: will be transferred to [facility] for cardiac catheterization Visit type - Emergency Visit Emergency Visit: No - New Patient This patient is new to me today: Yes Date on this admission: 04/29/16 - Critical Care Critical Care patient: Yes Total Critical Care Time (in minutes): 35 Critical Care Statement: The care of this patient involved high complexity decision making to prevent further life threatening deterioration of the patient 's condition and/or to evalute & treat vital organ system(s) failure or risk of failure.
[2016-04-29] MEDS: ACETAMINOPHEN 650 MG/20.3 ML ORAL SOLUTION (CUPS) PO PRN (19:05)
[2016-04-29] MEDS ORDERED: PROPOFOL 100 ML ONE (19:40)
--- NOTE | 2016-04-29 19:45 | CONS ---
DATE OF CONSULTATION: DATE OF DICTATION: 04/29/2016 INFECTIOUS DISEASE CONSULTATION HISTORY OF PRESENT ILLNESS: The patient is a 66-year-old male with a history of stroke, now evaluated for possible sepsis. The patient was admitted to the hospital on April 27, 2016, with worsening shortness of breath. According to the notes, he had had worsening dyspnea on exertion for approximately 1 month prior to admission. He presented to the emergency room where he was admitted with a diagnosis of congestive heart failure versus pulmonary embolism. His hospital course was complicated by cardiopulmonary arrest. The patient was successfully resuscitated and transferred to the intensive care unit. He was placed on hypothermia protocol. His clinical course was further complicated by ventricular tachycardia. The patient presently has finished the hypothermia protocol. He now has fever to 100.2 and an elevated white blood cell count of 19.8. He is intubated and on mechanical ventilation. According to the , he had no recent febrile illness, no known ill contacts. She denied any recent respiratory tract infection, urinary tract complaints, vomiting, or diarrhea. PAST MEDICAL HISTORY: Positive for stroke x2. The patient was ambulatory and driving with little residual deficit. Past medical history also positive for hypertension, diabetes, and hyperlipidemia. ALLERGIES: No known allergies. MEDICATION: Norvasc, Janumet, Lipitor, Plavix, Levemir, Keppra, Hyzaar, metformin. SOCIAL HISTORY: Remote history of tobacco use. 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 No history of alcohol abuse or illicit drug use. SYSTEMS REVIEW: Neurologic: Positive for history of stroke with some residual dysarthria. No seizure activity or loss of consciousness. Cardiac: As per HPI. Respiratory: As per HPI. Gastrointestinal: Negative vomiting or diarrhea. Genitourinary: Negative for urinary tract infection. LABORATORY DATA: White count 19.8, 88 neutrophils, 4 lymphocytes, 7 monocytes. Hematocrit 38.7, platelet count 256, BUN 26, creatinine 1.7. Liver enzymes normal. Blood and urine cultures pending. Chest x-ray shows increased markings bilaterally consistent with congestive heart failure versus bibasilar infiltrates. PHYSICAL EXAMINATION: General: He is sedated on the ventilator. Vital signs: Temperature 100.2, blood pressure 82/42, pulse 86 regular, respirations 15 per minute. HEENT: Sclerae anicteric. Patient is orally intubated. Cardiovascular: Heart sounds S1, S2. Respiratory: Lungs mechanically vented. Abdomen: Soft. No tenderness elicited. No mass, rebound, or rigidity. Extremities: 1+ edema. IMPRESSION: 1. Fever, leukocytosis, possible sepsis. 2. Status post cardiopulmonary arrest. 3. Respiratory failure. 4. Possible aspiration pneumonia. 5. Azotemia. 6. Possible septic shock on pressors. Pending sepsis workup, empiric antibiotic coverage with ceftriaxone and vancomycin, all empirically covered for the possibility of aspiration pneumonia as well as coverage of hospital-acquired pathogens with vancomycin adjusted for azotemia, continue pressors and ventilatory support. Case discussed with patient's present at the time of examination. Critical care time 35 minutes. Thank you for the kind referral. BONITA WHITE M.D. [id number]
[2016-04-29] MEDS ORDERED: IBUPROFEN 800 MG/8 ML IJ IVPB STA (20:58)
[2016-04-29] MEDS: ATORVASTATIN CA 20 MG TABLET (FP) PO SCH (21:08)
[2016-04-29] MEDS ORDERED: PT OWN MED DRAWER 7, Y5N ONE (22:17)
[2016-04-30] MEDS ORDERED: PROPOFOL 200 ML ONE
[2016-04-30] MEDS: HEPARIN INFUSION - 500 ML IVPB SCH (02:45)
[2016-04-30] MEDS: INSULIN SLIDING SCALE (NOVOLOG) 1 VIAL SQ SCH (06:01)
[2016-04-30] MEDS: FENTANYL INJECTION 500 MCG in DEXTROSE 5%-WATER - 90 ML IJ SCH ×2 (06:02→12:40)
[2016-04-30 06:11] LABS: MCH 28.1 pg (25.7-33.7); MCHC 33.3 g/dl (32.0-35.9); MEAN CELL VOLUME 84.2 fl (80-96); MEAN PLT VOLUME 10.6 fl (7.5-11.1); PLATELET COUNT 247 K/MM3 (134-434); RDW 13.5 % (11.9-15.9); WHITE BLOOD COUNT 17.5 K/mm3 (4.0-10.0)
[2016-04-30 06:44] LABS: ALBUMIN 2.7 g/dl (3.4-5.0); CALCIUM 7.3 mg/dL (8.5-10.1); MAGNESIUM 1.9 mg/dL (1.8-2.4)
[2016-04-30 06:47] LABS: BILIRUBIN,TOTAL 0.4 mg/dL (0.2-1.0); CREATININE 2.8 mg/dL (0.7-1.3); PHOSPHOROUS 7.1 mg/dL (2.5-4.9); TOT PROT 5.3 g/dl (6.4-8.2)
[2016-04-30] MEDS ORDERED: NOREPINEPHRINE BITARTRATE 4 MG/4 ML ML IV ONE (08:06)
[2016-04-30] MEDS: NOREPINEPHRINE BITARTRATE 8,000 MCG in DEXTROSE 5%-WATER - 492 ML IV SCH (08:19)
[2016-04-30] MEDS: AMIODARONE HCL INJECTION 450 MG in DEXTROSE 5%-WATER - 241 ML IVPB SCH (08:22)
--- NOTE | 2016-04-30 09:00 | PN ---
Progress Note, Physician History of Present Illness: No events overnight. - Current Medication List Current Medications: Active Medications Acetaminophen (Tylenol Oral Solution -) 650 mg PO Q4H PRN PRN Reason: FEVER OR PAIN Last Admin: 04/29/16 19:05 Dose: 650 mg Atorvastatin Calcium (Lipitor -) 20 mg PO HS MIKHAIL Last Admin: 04/29/16 21:08 Dose: 20 mg Chlorhexidine Gluconate (Hibiclens For Decolonization -) 1 applic TP HS MIKHAIL Heparin Sodium (Porcine) (Heparin -) 1,000 unit IVPUSH PRN PRN PRN Reason: Heparin Last Admin: 04/29/16 10:34 Dose: 1,000 unit Heparin Sodium (Porcine) (Heparin -) 5,000 unit IVPUSH PRN PRN PRN Reason: Heparin Last Admin: 04/29/16 00:47 Dose: 5,000 unit Heparin Sodium/Dextrose (Heparin Infusion -) 500 mls @ 20 mls/hr IVPB TITR MIKHAIL ; 1,000 UNITS/HR PRN Reason: Protocol Last Admin: 04/30/16 02:45 Dose: 26 mls/hr Propofol (Diprivan -) 100 mls @ 11.049 mls/hr IVPB TITR MIKHAIL; 20 MCG/KG/MIN PRN Reason: Protocol Last Admin: 04/29/16 23:20 Dose: 19.337 mls/hr Fentanyl 500 mcg/ Dextrose 100 mls @ 10 mls/hr IJ TITR MIKHAIL PRN Reason: 50 MCG/HR Last Admin: 04/30/16 06:02 Dose: 10 mls/hr Vecuronium [place] 50 mg/ (Dextrose) 250 mls @ 22.15 mls/hr IVPB TITR MIKHAIL; 0.8 MCG/KG/MIN PRN Reason: Protocol Last Admin: 04/29/16 19:00 Dose: Not Given Amiodarone HCl 450 mg/ (Dextrose) 250 mls @ 33.33 mls/hr IVPB TITR MIKHAIL; 1 MG/ MIN PRN Reason: Protocol Last Admin: 04/30/16 08:22 Dose: 16.7 mls/hr Norepinephrine Bitartrate 8, (000 mcg/ Dextrose) 500 mls @ 30 mls/hr IV ASDIR MIKHAIL; 8 MCG/MIN PRN Reason: Protocol Last Admin: 04/30/16 08:19 Dose: 45 mls/hr Ceftriaxone Sodium (Rocephin 2gm Ivpb (Pre-Docked)) 100 mls @ 200 mls/hr IVPB DAILY [facility] Last Admin: 04/29/16 15:17 Dose: 200 mls/hr Insulin Aspart (Novolog Vial Sliding Scale -) 1 vial SQ ACHS MIKHAIL PRN Reason: Protocol Last Admin: 04/30/16 06:01 Dose: 6 units Levetiracetam (Keppra -) 500 mg PO BID [facility] Last Admin: 04/29/16 22:28 Dose: 500 mg Meperidine HCl (Demerol Injection -) 50 mg IVPUSH Q6H PRN PRN Reason: SHIVERING Last Admin: 04/28/16 21:56 Dose: 50 mg Metoprolol Tartrate (Lopressor -) 25 mg PO BID [facility] Last Admin: 04/29/16 21:22 Dose: 25 mg Mupirocin (Bactroban Ointment (For Decolonization) -) 1 applic NS BID [facility] Stop: 05/05/16 09:59 - Objective Vital Signs: Vital Signs Temperature 100.6 F H 04/30/16 08:00 Pulse Rate 85 04/30/16 08:19 Respiratory Rate 14 04/30/16 08:00 Blood Pressure 107/64 04/30/16 08:19 O2 Sat by Pulse Oximetry (%) 96 04/30/16 07:47 HENT: Yes: Atraumatic, Normocephalic Cardiovascular: Yes: Regular Rate and Rhythm. No: JVD Respiratory: Yes: CTA Bilaterally, Intubated, Mechanically Ventilated Gastrointestinal: Yes: Normal Bowel Sounds, Soft. 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 Admitted on 04/27 with LIMON x 3 weeks and orthopnea/CP over the last 3 days. Patient had a normal echo at the time of his CVA in 09/2014. In ED patient was noted to have congestion on CXR and initial trop 1.31. He was admitted to floor and given IV laxis. On floor, patient had numerous short runs of non-sustained VT. He was given metoprolol succinate 50 mg po x1 and stat Mg was sent. However, he had VT arrest ([place]) on 04/28 and was intubated. Mg was repleted and hypothermia protocol was performed. Patient developed non-sustained runs of VT on evening of 04/28 and was shocked by SERVICE ENGINEER for reported VT and started on amiodarone gtt. I reviewed echocardiogram on 04/29/16 and per my review it appears that patient had an anterior infarct at some point in the past given akinesis/severe hypokinesis of anterior wall with estimated LVEF ~30% per my review. Cr has worsened to 2.8 today. Possibly due to ATN from hypotension? RECS: Continue amiodarone gtt Continue metoprolol tartrate 25 mg pNGT bid, atorvastatin, aspirin, and heparin gtt. Patient is currently pending transfer to [facility] today. Patient will need cardiac cath and likely coronary revascularization. However, patient's Cr has worsened to 2.8 today, which may delay timing of cath now. May give pressors for BP support as needed. Would avoid dopamine or dobutamine at this time given recurrent VT. Monitor and replace lytes (K and Mg) as needed. Keep K >4 and Mg >2. Will follow. Call with questions.
[2016-04-30] MEDS ORDERED: MUPIROCIN 2% TOPICAL OINTMENT FOR DECOLONIZATION NS SCH (10:00)
[2016-04-30] MEDS ORDERED: ASPIRIN 81 MG CHEWABLE TABLETS NGT SCH (10:00)
[2016-04-30] MEDS: CEFTRIAXONE 100 ML IVPB SCH (10:20)
[2016-04-30] MEDS: METOPROLOL TARTRATE 25 MG TABLET (FP) PO SCH (10:22)
[2016-04-30] MEDS: levETIRAcetam 500 MG TABLET (FP) PO SCH (10:22)
[2016-04-30] MEDS: ACETAMINOPHEN 650 MG/20.3 ML ORAL SOLUTION (CUPS) PO PRN (10:39)
--- NOTE | 2016-04-30 10:53 | PN ---
Progress Note, Physician History of Present Illness: Awake on ventilator;hypotensive on pressors Remains febrile WBC slightly improved Worsening azotemia Cultures prelim no growth - Current Medication List Current Medications: Active Medications Acetaminophen (Tylenol Oral Solution -) 650 mg PO Q4H PRN PRN Reason: FEVER OR PAIN Last Admin: 04/30/16 10:39 Dose: 650 mg Aspirin (Asa -) 81 mg NGT DAILY MIKHAIL Last Admin: 04/30/16 10:22 Dose: 81 mg Atorvastatin Calcium (Lipitor -) 20 mg PO HS MIKHAIL Last Admin: 04/29/16 21:08 Dose: 20 mg Chlorhexidine Gluconate (Hibiclens For Decolonization -) 1 applic TP HS MIKHAIL Heparin Sodium (Porcine) (Heparin -) 1,000 unit IVPUSH PRN PRN PRN Reason: Heparin Last Admin: 04/29/16 10:34 Dose: 1,000 unit Heparin Sodium (Porcine) (Heparin -) 5,000 unit IVPUSH PRN PRN PRN Reason: Heparin Last Admin: 04/29/16 00:47 Dose: 5,000 unit Heparin Sodium/Dextrose (Heparin Infusion -) 500 mls @ 20 mls/hr IVPB TITR MIKHAIL ; 1,000 UNITS/HR PRN Reason: Protocol Last Admin: 04/30/16 02:45 Dose: 26 mls/hr Propofol (Diprivan -) 100 mls @ 11.049 mls/hr IVPB TITR MIKHAIL; 20 MCG/KG/MIN PRN Reason: Protocol Last Admin: 04/29/16 23:20 Dose: 19.337 mls/hr Fentanyl 500 mcg/ Dextrose 100 mls @ 10 mls/hr IJ TITR MIKHAIL PRN Reason: 50 MCG/HR Last Admin: 04/30/16 06:02 Dose: 10 mls/hr Vecuronium [place] 50 mg/ (Dextrose) 250 mls @ 22.15 mls/hr IVPB TITR MIKHAIL; 0.8 MCG/KG/MIN PRN Reason: Protocol Last Admin: 04/29/16 19:00 Dose: Not Given Amiodarone HCl 450 mg/ (Dextrose) 250 mls @ 33.33 mls/hr IVPB TITR MIKHAIL; 1 MG/ MIN PRN Reason: Protocol Last Admin: 04/30/16 08:22 Dose: 16.7 mls/hr Norepinephrine Bitartrate 8, (000 mcg/ Dextrose) 500 mls @ 30 mls/hr IV ASDIR MIKHAIL; 8 MCG/MIN PRN Reason: Protocol Last Admin: 04/30/16 08:19 Dose: 45 mls/hr Ceftriaxone Sodium (Rocephin 2gm Ivpb (Pre-Docked)) 100 mls @ 200 mls/hr IVPB DAILY [facility] Last Admin: 04/30/16 10:20 Dose: 200 mls/hr Insulin Aspart (Novolog Vial Sliding Scale -) 1 vial SQ ACHS MIKHAIL PRN Reason: Protocol Last Admin: 04/30/16 06:01 Dose: 6 units Levetiracetam (Keppra -) 500 mg PO BID [facility] Last Admin: 04/30/16 10:22 Dose: 500 mg Meperidine HCl (Demerol Injection -) 50 mg IVPUSH Q6H PRN PRN Reason: SHIVERING Last Admin: 04/28/16 21:56 Dose: 50 mg Metoprolol Tartrate (Lopressor -) 25 mg PO BID [facility] Last Admin: 04/30/16 10:22 Dose: 25 mg Mupirocin (Bactroban Ointment (For Decolonization) -) 1 applic NS BID [facility] Stop: 05/05/16 09:59 - Objective Vital Signs: Vital Signs Temperature 101.2 F H 04/30/16 09:17 Pulse Rate 88 04/30/16 09:17 Respiratory Rate 14 04/30/16 09:17 Blood Pressure 114/64 04/30/16 09:17 O2 Sat by Pulse Oximetry (%) 96 04/30/16 07:47 Constitutional: Yes: No Distress Eyes: Yes: Conjunctiva Clear Cardiovascular: Yes: Regular Rate and Rhythm, S1, S2 Respiratory: Yes: Mechanically Ventilated Gastrointestinal: Yes: Normal Bowel Sounds, Soft. No: Tenderness Edema: No Labs: CBC, BMP 04/30/16 05:00 04/30/16 05:00 INR, PTT INR 1.12 (0.82-1.09) 04/29/16 05:40 Assessment/Plan Fever/ leukocytosis- possible sepsis secondary to aspiration pneumonia Sepsis/ septic shock S/P cardiopulmonary arrest Respiratory failure Azotemia MS/ cardiac arrhythmia Await c/s Continue empiric ceftriaxone ventilatory/ hemodynamic support
[2016-04-30] MEDS ORDERED: POTASSIUM CHLORIDE 40 MEQ/30 ML UNIT DOSE CUP ONE (11:18)
[2016-04-30] MEDS ORDERED: POTASSIUM CHLORIDE 40 MEQ/30 ML UNIT DOSE CUP PO ONE (11:45)
[2016-04-30] MEDS: PROPOFOL 100 ML IVPB SCH (13:12)
--- NOTE | 2016-04-30 13:59 | DS ---
Physical Examination Vital Signs: Vital Signs Temperature 101.2 F H 04/30/16 10:00 Pulse Rate 84 04/30/16 12:00 Respiratory Rate 14 04/30/16 12:26 Blood Pressure 107/67 04/30/16 12:00 O2 Sat by Pulse Oximetry (%) 96 04/30/16 07:47 Findings/Remarks: TRANSFERRED TO [facility] Constitutional: Yes: Severe Distress Cardiovascular: Yes: Tachycardia, Pulse Irregular Respiratory: Yes: Mechanically Ventilated Edema: Yes Neurological: Yes: Confusion, Weakness, Other Labs: CBC, BMP 04/30/16 05:00 04/30/16 05:00 Discharge Summary Reason For Visit: CHF, NSTEMI MYOCARDIAL INFARCTION ACUTE CORONARY SYNDROME MYOCARDIAL INFARCTION ACUTE RENAL FAILURE EDEMA VENTRICULAR TACHYCARDIA S/P CARDIAC ARREST Hospital Course: ADMITTED TO ACUTE CORONARY SYNDROME, V-TACH WITH MYOCARDIAL INFARCTION, INTUBATED SENT TO [facility] FOR CARE Condition: Guarded - Instructions Referrals: John Rosenthal MD [Primary Care Provider] - Disposition: TRANSFER ACUTE CARE/OTHER HOSP - Home Medications Comprehensive Discharge Medication List: Ambulatory Orders Amlodipine Besylate [Norvasc -] 10 mg PO DAILY 10/06/14 Acetaminophen [Tylenol .Regular Strength -] 650 mg PO Q6H PRN #0 tablet Atorvastatin Ca [Lipitor] 10 mg PO HS tablet 10/14/14 Clopidogrel Bisulfate [Plavix -] 75 mg PO DAILY tablet 10/14/14 Levetiracetam [Keppra -] 500 mg PO BID tablet 10/14/14 Losartan 50Mg/Hctz 12.5MG [Hyzaar -] 2 tab PO DAILY tablet 10/14/14 Metformin HCl [Glucophage -] 1,000 mg PO BID@0700,1630 tablet 10/14/14 Sodium Chloride Nasal Qulin [Alcorn Qulin Nasal Qulin -] 2 spray NS BID PRN #0 spraybtl 10/14/14 Sitagliptin Phosphate [Januvia -] 50 mg PO AM 04/27/16 Triamcinolone Acetonide [Nasacort] 2 spray NS HS 04/27/16
--- NOTE | 2016-04-30 14:22 | PN ---
Teaching Attending Note Name of Resident: Antwon Lawler ATTENDING PHYSICIAN STATEMENT I saw and evaluated the patient. I reviewed the resident's note and discussed the case with the resident. I agree with the resident's findings and plan as documented. SUBJECTIVE: Pt seen and examined in the ICU. Remains intubated, sedated on levophed gtt. Febrile overnight. OBJECTIVE: Last Vital Signs Temp Pulse Resp BP Pulse Ox 101.2 F H 84 14 107/67 96 04/30/16 10:00 04/30/16 12:00 04/30/16 12:26 04/30/16 12:00 04/30/16 07:47 Intake & Output 04/27/16 04/28/16 04/29/16 04/30/16 23:59 23:59 23:59 23:59 Intake Total 620 1235 2532 1383.5 Output Total 850 750 650 Balance 247 240 0220 733.5 Weight 203 lb 203 lb 7.787 oz 207 lb 1.6 oz 207 lb 1.6 oz Gen: intubated, sedated Heart: RRR Lung: decreased breath sounds at the bases Abd: soft, nontender Ext: + edema CBC, BMP 04/30/16 05:00 04/30/16 05:00 ASSESSMENT AND PLAN: s/p VT Cardiopulmonary Arrest s/p Hypothermia Protocol Acute NSTEMI Acute LV Systolic Failure Cardiogenic Shock Acute Kidney Injury - titrate levophed to maintain MAP >65 - replete lytes - IVF to keep CVP 8-12 - continue amiodarone gtt - metoprolol per cardiology - continue anticoagulation - continue volume assist control - for transfer to [facility] for further cardiac work up - ICU monitoring
[2016-04-30 16:31] VITALS: BP 122/68; PULSE 90; TEMP 102.1
[2016-04-30] MEDS ORDERED: CHLORHEXIDINE GLUCONATE 4% CLEANSER FOR DECOLONIZATION TP SCH (22:00)
== END 2016-04-30 13:15 | disposition short-term general hospital (02) | DRG 280 ==
LOC: JER 10:55 → JERBED 14:27 → J4S 20:12 → JICU 04-28 00:46
PROVIDERS: ADMIT Family Medicine; ATTEND Family Medicine
PROC: 0BH17EZ Insertion of Endotracheal Airway into Trachea, Via Natural or Artificial Opening (ICD-10-PCS; principal; 2016-04-27)
PROC: 5A1945Z Respiratory Ventilation, 24-96 Consecutive Hours (ICD-10-PCS; 2016-04-27)
PROC: 5A12012 Performance of Cardiac Output, Single, Manual (ICD-10-PCS; 2016-04-28)
PROC: 6A4Z0ZZ Hypothermia, Single (ICD-10-PCS; 2016-04-28)
PROC: 05HM33Z Insertion of Infusion Device into Right Internal Jugular Vein, Percutaneous Approach (ICD-10-PCS; 2016-04-29)
PROC: B543ZZA Ultrasonography of Right Jugular Veins, Guidance (ICD-10-PCS; 2016-04-29)
DX: I21.4 Non-ST elevation (NSTEMI) myocardial infarction (principal); I46.9 Cardiac arrest, cause unspecified; I50.23 Acute on chronic systolic (congestive) heart failure; J96.00 Acute respiratory failure, unspecified whether with hypoxia or hypercapnia; I47.2 Ventricular tachycardia; N17.9 Acute kidney failure, unspecified; F17.290 Nicotine dependence, other tobacco product, uncomplicated; Z86.73 Personal history of transient ischemic attack (TIA), and cerebral infarction without residual deficits; E11.9 Type 2 diabetes mellitus without complications; Z79.84 Long term (current) use of oral hypoglycemic drugs; I11.0 Hypertensive heart disease with heart failure; E78.5 Hyperlipidemia, unspecified; R26.81 Unsteadiness on feet; R56.9 Unspecified convulsions; E83.42 Hypomagnesemia
CPT/HCPCS: 36415; 36600; 71010-TC; 80048; 80053; 80061; 80076; 82550; 82553; 82803; 83036; 83605; 83721; 83735; 83880; 84100; 84484; 85025; 85027; 85610; 85730; 86850; 86900; 86901; 87040; 87070; 87086; 87186; 87205; 93005; 93010; 93306-TC; 94002; 99285-25; J1644